=== PATIENT | male | born 1945 | race Caucasian/White ===

== ENCOUNTER 2018-02-16 23:09 | Inpatient (IN) | payer MEDICARE, OTHER ==
[2018-02-16] MEDS ORDERED: Heparin 10,000 UNITS/1 ML VIAL ONE (23:42)
[2018-02-16] MEDS ORDERED: Aggrastat 12.5 MG/250 ML 250 ML ONE (23:42)
[2018-02-16 23:51] LABS: INR-International Normal Ratio 1.2; Prothrombin Time 14.9 SEC (12.0-14.7)
[2018-02-16 23:52] LABS: PTT 66.7 SEC (22.9-36.1)
[2018-02-16] MEDS ORDERED: Atropine Sulfate 1 mg/10 ml Syringe ONE (23:54)
[2018-02-17] MEDS ORDERED: DOPamine 400 MG/D5W 250 ML 250 ML ONE (00:09)
[2018-02-17] MEDS ORDERED: Nitroglycerin 100MG/250ML BOT 250 ML ONE (00:56)
[2018-02-17] MEDS: Sodium Chloride 0.9% 1,000 ML IV SCH ×2 (02:00→13:07)
[2018-02-17 02:01] VITALS: BMI 28.3
[2018-02-17] MEDS ORDERED: Aggrastat 12.5 MG/250 ML 12.5 MG in Premix Bag 1 BAG IVPB SCH (02:49)
[2018-02-17 05:12] LABS: #Lymphocytes 0.9 thou/uL (1.20-3.40); #Monocytes 0.5 thou/uL (0.11-0.59); #Neutrophils 9.3 thou/uL (1.40-6.50); %Basophils 0.3 % (0.0-1.0); %Eosinophils 0.4 % (0.0-10.0); %Lymphocytes 8.2 % (21.0-51.0); %Monocytes 4.9 % (0.0-10.0); %Neutrophils 86.3 % (42.0-75.0); Mean Corpuscular HGB CONC 33.7 g/dL (32.0-36.0); Mean Corpuscular Volume 88.9 fL (78.0-98.0); Mean Platelet Volume 6.9 fL (7.4-10.4); Platelet Count 211 thou/uL (130-400); RBC Distribution Width 12.2 % (11.5-14.5); Red Blood Cell (RBC) Count 4.99 mill/uL (4.70-6.10); White Blood Cell (WBC) Count 10.8 thou/uL (4.8-10.8)
[2018-02-17 05:32] LABS: ALT (SGPT) 27 U/L (8-55); AST (SGOT) 76 U/L (5-34); Albumin 3.6 g/dL (3.4-4.8); Alkaline Phosphatase 59 U/L (40-150); Anion Gap 9 mmol/L (10-20); BUN (Urea Nitrogen) 13 mg/dL (8.4-25.7); Bilirubin, Total 0.5 mg/dL (0.2-1.2); Calc. Creatinine Clearance 111 mL/min (70-130); Calcium 8.7 mg/dL (7.8-10.44); Carbon Dioxide 25 mmol/L (23-31); Chloride 105 mmol/L (98-107); Estimated GFR-MDRD Greater than 90; Globulin 2.6 g/dL (2.4-3.5); Glucose 123 mg/dL (83-110); Protein, Total 6.2 g/dL (5.8-8.1); Sodium 135 mmol/L (136-145)
[2018-02-17 06:04] LABS: CKMB 115.6 ng/mL (0-6.6)
[2018-02-17] MEDS ORDERED: Carvedilol 3.125 MG TAB PO SCH (09:00)
[2018-02-17 10:43] LABS: #Eosinphils 0.1 thou/uL (0.0-0.7); #Lymphocytes 1.4 thou/uL (1.20-3.40); #Monocytes 0.9 thou/uL (0.11-0.59); #Neutrophils 9.5 thou/uL (1.40-6.50); %Basophils 0.2 % (0.0-1.0); %Eosinophils 0.4 % (0.0-10.0); %Lymphocytes 11.8 % (21.0-51.0); %Monocytes 7.3 % (0.0-10.0); %Neutrophils 80.3 % (42.0-75.0); Hemoglobin 14.9 g/dL (14.0-18.0); Mean Corpuscular HGB CONC 34.7 g/dL (32.0-36.0); Mean Corpuscular Hemoglobin 30.6 pg (27.0-31.0); Mean Corpuscular Volume 88.3 fL (78.0-98.0); Mean Platelet Volume 6.5 fL (7.4-10.4); Platelet Count 216 thou/uL (130-400); RBC Distribution Width 12.3 % (11.5-14.5); Red Blood Cell (RBC) Count 4.86 mill/uL (4.70-6.10); White Blood Cell (WBC) Count 11.8 thou/uL (4.8-10.8)
[2018-02-17 11:56] LABS: CKMB 143.7 ng/mL (0-6.6)
[2018-02-17] MEDS: Lisinopril 2.5 MG TAB PO SCH (13:12)
--- NOTE | 2018-02-17 14:58 | HP ---
INDICATION FOR ADMISSION: Acute inferior myocardial infarction. HISTORY OF PRESENT ILLNESS: This is a very pleasant 72-year-old gentleman, who has had no previous cardiac history. He has been complaining of some chest pain on and off for several days and when he was doing exercise, running on the treadmill. This evening, he was sitting on the sofa and started noticing that he has some chest discomfort. The chest pain increased and he became somewhat short of breath. He presented to the emergency room, was found to have an acute inferior myocardial infarction. He will be taken to the cardiac high density press laborer on an emergent basis. In the emergency room in [place], he was given heparin and aspirin. His pain has decreased somewhat now. Prior to going to the high density press laborer, his chest pain was about 3/10. PAST MEDICAL HISTORY: Only positive for hernia repair in February 2016. He does have a history of hypertension. He denied any history of hypercholesterolemia, diabetes, or tobacco abuse. FAMILY HISTORY: He does have some family history of coronary artery disease. SOCIAL HISTORY: He is . He has 2 children. No heart disease. He has no tobacco abuse. ALLERGIES: NONE. REVIEW OF SYSTEMS: A 12-point review of systems is unremarkable except the patient wears glasses and as noted in the history of present illness. PHYSICAL EXAMINATION: GENERAL: Reveals a well-developed, well-nourished, very pleasant gentleman. VITAL SIGNS: Blood pressure was elevated previously at 210/100 in the emergency room. This has no decreased somewhat. Blood pressure is down to 173/97. Heart rate is approximately 68 beats per minute, O2 saturation is 98%. HEENT: Shows the head to be normocephalic and atraumatic. Carotid pulses are present. There were no bruits. CHEST: Clear to auscultation. There were no rales, rhonchi, or wheezing. CARDIOVASCULAR: Reveals a regular rate and rhythm. He has normal S1, S2. I did not hear significant any S3 or S4. There were no significant murmurs, heaves, thrills, bruits or rubs. ABDOMEN: Soft, nontender. Positive bowel sounds are present. EXTREMITIES: Show no clubbing, cyanosis, or edema. Pedal pulses are present. NEUROLOGIC: The patient appears to be fully intact. DIAGNOSTIC DATA: His EKG did show acute ST-segment elevation in the inferior leads compatible with acute inferior myocardial infarction with reciprocal changes in the lateral leads. His laboratory data is still pending. He did have laboratory data performed in [place]. We will review this when the lab arise. Given the patient's history and continued chest pain and EKG changes, he will be taken to the cardiac high density press laborer on an emergent basis. I have explained the procedure, the risks to him to include bleeding, infection, possible myocardial infarction, CVA, renal insufficiency, allergic contrast reaction, the possibility of . He understands and agrees to proceed. We will plan for emergent cardiac catheterization. Job ID: [id number]
[2018-02-17 15:30] LABS: #Lymphocytes 1.3 thou/uL (1.20-3.40); #Monocytes 0.8 thou/uL (0.11-0.59); #Neutrophils 10.5 thou/uL (1.40-6.50); %Basophils 0.2 % (0.0-1.0); %Eosinophils 0.4 % (0.0-10.0); %Lymphocytes 10.4 % (21.0-51.0); %Monocytes 6.5 % (0.0-10.0); %Neutrophils 82.5 % (42.0-75.0); Hemoglobin 14.7 g/dL (14.0-18.0); Mean Corpuscular Hemoglobin 30.3 pg (27.0-31.0); Mean Platelet Volume 6.4 fL (7.4-10.4); Platelet Count 208 thou/uL (130-400); RBC Distribution Width 12.3 % (11.5-14.5); Red Blood Cell (RBC) Count 4.86 mill/uL (4.70-6.10); White Blood Cell (WBC) Count 12.7 thou/uL (4.8-10.8)
--- NOTE | 2018-02-17 16:40 | CON ---
DATE OF CONSULTATION: 02/17/2018 PRIMARY CARE PHYSICIAN: Riki Powell MD CHIEF COMPLAINT: Chest pressure. HISTORY OF PRESENT ILLNESS: The patient is a 72-year-old man with scant past medical history. Yesterday evening, he began developing substernal chest pressure that persisted and became associated with diaphoresis. When he presented to the emergency room, he had inferior ST elevation and he was transferred here and taken emergently to the metallurgy laboratory technician and underwent emergency angioplasty of his right coronary system. During the procedure, he had some bradycardia associated with hypotension that has since resolved. He has had an otherwise uneventful post infarction course. PAST MEDICAL HISTORY: He has no other past medical history. PAST SURGICAL HISTORY: About a year ago, he underwent a left inguinal herniorrhaphy. MEDICATIONS: He takes no medications on a regular basis. ALLERGIES: HAS NO FOOD OR DRUG ALLERGIES. SOCIAL HISTORY: He does not smoke. FAMILY HISTORY: Significant for his father having coronary problems starting in his mid 60s. He also had a stroke. He has had an uncle, who suddenly presumably of a heart attack. REVIEW OF SYSTEMS: Notable for similar, but less severe chest pressure when he had about the 2 mile hali on the treadmill about 2 months ago. He has had no other similar chest symptoms. No transient eye, speech, facial, or extremity symptoms to suggest TIAs. No recent illnesses. No unintended weight loss. PHYSICAL EXAMINATION: GENERAL: On exam, he is a fit-appearing man, who probably looks a little bit younger than his stated age. VITAL SIGNS: Height is 5 feet 8 inches. Weight is 186 and quarter pounds. Heart rate is 64, blood pressure 136/63, and room air O2 saturations are 97%. HEENT: He has no xanthelasma. NECK: No JVD. No carotid bruits. CHEST: Clear to auscultation. HEART: He has regular rate and rhythm. ABDOMEN: Soft and nontender. EXTREMITIES: He has easily palpable radial, dorsalis pedis and posterior tibial pulses. No clubbing, cyanosis, or edema. No obvious varicosities. NEUROLOGIC: Grossly nonfocal. LABORATORY EXAM: Showed a white count of 11.8, hemoglobin 14.9, hematocrit 42.9, and platelets 216,000. PT was 14.9 and INR 1.2. Electrolytes were normal. Glucose 123, BUN 13, creatinine 0.73, bilirubin 0.5, alkaline phosphatase 59, AST 76, ALT 27, calcium 8.7, protein 6.2, and albumin 3.6. His initial troponin here shortly before midnight was 0.408, around 4:45 in the morning, 26.037 and 10:30 this morning 110.989. His chest x-ray showed some mild pulmonary edema. His cardiac catheterization showed a right-dominant system with serial subtotal stenosis in the proximal and mid right coronary with a high-grade lesion on the order of about 80% or perhaps 90% distally with a vessel that was probably about 2 to 2.5 mm in size. There was a protracted course in attempting to open it and ultimately had to settle for angioplasty without stenting. His left-sided system has multiple branches, all of which are at best modest in size. His LAD seems to get very small out distally where it is readily accessible surgically. He has modest lesion in a small diagonal and a high-grade lesion in what appears to represent a very proximal diagonal. He has significant lesions in a moderate-sized OM1, small OM2 with no significant compromise to the circumflex system beyond that. Post percutaneous revascularization of his right coronary artery, LVEF was around 60% with no obvious wall motion abnormalities. Aortic pressure is 135/53 with mean of 85 on pullback from the LV pressure of 142, negative to with an EDP of 6. IMPRESSION AND PLAN: Severe 2-vessel coronary artery disease primarily involving an extensively diseased, right coronary system is culprit vessel for an inferior myocardial infarction, seems to have been successfully aborted with good LV function post dilatation from a technical standpoint it was not feasible to stent the vessel and as Dr. Zacarias and I discussed as we went over his catheterization. Neither of us are very optimistic about it staying open for a very long time given the intervention so far I am not quite as pessimistic, he is about being technically able to graft both of the compromised EOMs, but it certainly are not large vessels. We went over the film for considerable amount of time trying to make certain about the severity of the disease in the LAD, although the vessel is rather small distally. There does not seem to be any discrete flow-limiting lesion. The vessels under fluoroscopy can be appreciated to be extensively calcified proximally on the left side and for much of the right coronary artery. Impression/recommendations, while technically feasible to bypass the right and at least 1 of the obtuse marginals, this seems awfully invasive given the lack of compromise of the LAD. Irrespective of the technical challenges of the size of the vessels, there certainly is not a survival advantage with surgical revascularization. One of the options that we discussed the Rotablator approach followed by stenting, which would require outside referral. I think that this is a reasonable consideration rather than coronary artery bypass grafting. Job ID: [id number]
--- NOTE | 2018-02-17 20:23 | PDOC.CTH ---
Cardiology Progress Note - Subjective Pt. seen and eval. no complaints. No chest pain or SOB. 9 beats of AIVR this AM. - Objective Vital Signs Temp Pulse BP 02/17/18 20:00 97.9 F 02/17/18 16:00 98.9 F 02/17/18 13:12 69 130/78 02/17/18 12:00 98.5 F Weight 186 lb 4.65 oz 02/16/18 02/17/18 02/18/18 06:59 06:59 06:59 Intake Total 559 1652 Output Total 350 1700 Balance 209 -48 - Physical Examination General/Neuro: alert & oriented x3 Neck: carotid US brisk Lungs: CTA Heart: RRR Abdomen: NT/ND - Telemetry Telemetry Rhythm: NSR - Labs Result Diagrams: 02/17/18 15:22 02/17/18 04:40 Troponin/CKMB CK-MB (CK-2) 143.7 ng/mL (0-6.6) H* 02/17/18 10:30 Troponin I 110.989 ng/mL (< 0.028) H* 02/17/18 10:30 - Assessment/Plan 1. S/P STEMI-inferior. PTCA with 2.0 and 2.5 mm balloon. Still has residual stenosis. May need rotablader after the stenosis is stable s/p ptca. Vessels are small for CABG. 2. Hypercholesterolemia. Continue statins.
[2018-02-17] MEDS: Carvedilol 3.125 MG TAB PO SCH (21:03)
[2018-02-17] MEDS: Atorvastatin Calcium 40 MG TAB PO SCH (21:03)
[2018-02-17] MEDS: TICAGRELOR 90 MG TABLET PO SCH (21:04)
[2018-02-17 21:29] LABS: #Eosinphils 0.1 thou/uL (0.0-0.7); #Lymphocytes 1.5 thou/uL (1.20-3.40); #Monocytes 0.9 thou/uL (0.11-0.59); #Neutrophils 7.8 thou/uL (1.40-6.50); %Basophils 0.4 % (0.0-1.0); %Eosinophils 0.6 % (0.0-10.0); %Lymphocytes 14.1 % (21.0-51.0); %Monocytes 8.9 % (0.0-10.0); Hemoglobin 14.9 g/dL (14.0-18.0); Mean Corpuscular HGB CONC 34.7 g/dL (32.0-36.0); Mean Corpuscular Volume 89.4 fL (78.0-98.0); Mean Platelet Volume 6.5 fL (7.4-10.4); Platelet Count 195 thou/uL (130-400); RBC Distribution Width 12.4 % (11.5-14.5); Red Blood Cell (RBC) Count 4.81 mill/uL (4.70-6.10); White Blood Cell (WBC) Count 10.3 thou/uL (4.8-10.8)
[2018-02-18] MEDS: Carvedilol 3.125 MG TAB PO SCH ×2 (08:14→20:07)
[2018-02-18] MEDS: TICAGRELOR 90 MG TABLET PO SCH ×2 (09:51→20:07)
[2018-02-18] MEDS: Lisinopril 2.5 MG TAB PO SCH (09:51)
--- NOTE | 2018-02-18 16:49 | PDOC.CTH ---
Cardiology Progress Note - Subjective No overnight events. No cardiac complaints. - Objective Vital Signs Temp Pulse BP Pulse Ox 02/18/18 12:00 98.7 F 02/18/18 09:51 64 127/76 02/18/18 07:53 100 02/18/18 07:00 98.4 F Weight 184 lb 4.903 oz 02/17/18 02/18/18 02/19/18 06:59 06:59 06:59 Intake Total 559 1896 790 Output Total 350 2650 650 Balance 209 -754 140 - Physical Examination General/Neuro: alert & oriented x3 Neck: carotid US brisk, no JVD present Lungs: CTA Heart: RRR Abdomen: NT/ND, soft - Labs Result Diagrams: 02/17/18 21:21 02/17/18 04:40 Troponin/CKMB CK-MB (CK-2) 143.7 ng/mL (0-6.6) H* 02/17/18 10:30 Troponin I 110.989 ng/mL (< 0.028) H* 02/17/18 10:30 - Assessment/Plan 1. S/P STEMI-inferior. PTCA with 2.0 and 2.5 mm balloon. Still has residual stenosis. May need rotablader after the stenosis is stable s/p ptca. Vessels are small for CABG. will recheck the troponin-I. Stable to transfer to [facility]. Will discuss with in [place] concerning further revascularization. 2. Hypercholesterolemia. Continue statins.
[2018-02-18 17:51] LABS: Troponin I 203.395 ng/mL (< 0.028)
[2018-02-18] MEDS: Atorvastatin Calcium 40 MG TAB PO SCH (20:07)
[2018-02-19] MEDS: TICAGRELOR 90 MG TABLET PO SCH ×2 (09:12→20:40)
[2018-02-19] MEDS: Carvedilol 3.125 MG TAB PO SCH ×2 (09:13→20:40)
[2018-02-19] MEDS: Lisinopril 2.5 MG TAB PO SCH (09:19)
--- NOTE | 2018-02-19 18:52 | PDOC.CTH ---
Cardiology Progress Note - Subjective Pt. seen and eval. no overnight events. No chest pain or SOB - Objective Vital Signs Temp Pulse Pulse Pulse Resp BP BP 02/19/18 16:34 98.8 F 71 18 02/19/18 11:07 98.5 F 74 18 02/19/18 09:30 72 72 162/90 H 181/95 H 02/19/18 08:00 98.6 F 70 20 BP Pulse Ox Pulse Ox Pulse Ox 02/19/18 16:34 131/85 97 02/19/18 11:07 156/92 H 98 02/19/18 09:30 96 97 02/19/18 08:00 116/76 96 Weight 183 lb 5 oz 02/18/18 02/19/18 02/20/18 06:59 06:59 06:59 Intake Total 1896 1040 Output Total 2650 1000 Balance -754 40 - Physical Examination General/Neuro: alert & oriented x3 Neck: carotid US brisk, no JVD present Lungs: CTA, unlabored respirations Heart: RRR Abdomen: no HSM, NT/ND - Labs Result Diagrams: 02/17/18 21:21 02/17/18 04:40 Troponin/CKMB CK-MB (CK-2) 143.7 ng/mL (0-6.6) H* 02/17/18 10:30 Troponin I 203.395 ng/mL (< 0.028) H* 02/18/18 16:55 - Assessment/Plan 1. S/P STEMI-inferior. PTCA with 2.0 and 2.5 mm balloon. Still has residual stenosis. May need rotablader after the stenosis is stable s/p ptca. Vessels are small for CABG. will recheck the troponin-I. Stable to transfer to [facility]. Will discuss with in [place] concerning further revascularization.Still waiting to hear back from [place]. he is doing well without symptoms. Plan for D/C in AM 2. Hypercholesterolemia. Continue statins.
[2018-02-19] MEDS: Atorvastatin Calcium 40 MG TAB PO SCH (20:40)
--- NOTE | 2018-02-20 08:44 | PDOC.CTH ---
Cardiology Progress Note - Subjective Pt. seen and eval. no overnight events. No chest pain or SOB. - Objective Vital Signs Temp Pulse Resp BP Pulse Ox 02/20/18 04:00 98.4 F 71 18 120/65 98 02/20/18 00:00 98.4 F 67 19 138/78 96 Weight 182 lb 8 oz 02/19/18 02/20/18 02/21/18 06:59 06:59 06:59 Intake Total 1040 2890 Output Total 1000 850 Balance 40 2040 - Physical Examination General/Neuro: alert & oriented x3 Neck: no JVD present Lungs: CTA Heart: RRR Abdomen: soft Extremities: other: (No edema) - Telemetry Telemetry Rhythm: SR - Labs Result Diagrams: 02/17/18 21:21 02/17/18 04:40 Troponin/CKMB CK-MB (CK-2) 143.7 ng/mL (0-6.6) H* 02/17/18 10:30 Troponin I 203.395 ng/mL (< 0.028) H* 02/18/18 16:55 - Assessment/Plan 1. S/P STEMI-inferior. PTCA with 2.0 and 2.5 mm balloon to prx-mid RCA (No stent) and 50% stenosis in Dig1, 20% in mid LAD, 70% in OM1, and 20% in Prox Cx. Still has residual stenosis. May need rotablader after the stenosis is stable s/p ptca. 2. HTN - stable with current med 3. Hyperlipidemia - on Statin * The pt is stable to d/c home this AM. The pt will f/u with Dr Zacarias' office within 1-2wks. * Vessels are small for CABG. The pt will f/u with CT surgeon in [place] concerning further revascularization. Still waiting to hear back from [place]. Review of Systems - Review of Systems Constitutional: reports: no symptoms reported EENTM: reports: no symptoms reported Respiratory: reports: no symptoms reported Cardiac (ROS): reports: no symptoms reported ABD/GI: reports: no symptoms reported : reports: no symptoms reported Musculoskeletal: reports: no symptoms reported
[2018-02-20] MEDS: Carvedilol 3.125 MG TAB PO SCH (09:02)
[2018-02-20] MEDS: TICAGRELOR 90 MG TABLET PO SCH (09:03)
[2018-02-20] MEDS: Lisinopril 2.5 MG TAB PO SCH (09:03)
[2018-02-20 09:24] VITALS: BP 164/90; TEMP 97.2
[2018-02-20 11:24] LABS: Critical Call Chem Troponin I RESULT DECREASING; Troponin I 165.743 ng/mL (< 0.028)
--- NOTE | 2018-02-20 16:15 | EKG ---
Test Reason : Blood Pressure : / mmHG Vent. Rate : 059 BPM Atrial Rate : 059 BPM P-R Int : 164 ms QRS Dur : 124 ms QT Int : 436 ms P-R-T Axes : 017 -41 -45 degrees QTc Int : 431 ms Sinus bradycardia with sinus arrhythmia Left axis deviation Right bundle branch block Moderate voltage criteria for LVH, may be normal variant Inferior infarct (cited on or before 16-FEB-2018) Abnormal ECG When compared with ECG of 16-FEB-2018 23:14, (Unconfirmed) Right bundle branch block has replaced RSR' pattern in V1 Serial changes of evolving Inferior infarct Present Confirmed by DR. Ita DE LA O ([id number]) on 02/20/2018 4:15:23 PM Referred By: KEE Confirmed By:DR. Ita DE LA O
--- NOTE | 2018-02-21 03:04 | DIS ---
DATE OF ADMISSION: 02/17/2018 DATE OF DISCHARGE: 02/20/2018 ADMITTING DIAGNOSES: Acute inferior ST-segment elevation myocardial infarction. His other diagnosis includes hypertension. DISCHARGE DIAGNOSIS: hypertension. PROCEDURE DURING HOSPITALIZATION: Include cardiac catheterization with angioplasty to the right coronary artery. No stent was placed. He also had other disease noted in the diagonal branch, as well as left circumflex. In the obtuse marginal branches, the left ventricular systolic function appeared to be well preserved. DISCHARGE MEDICATIONS: Include: 1. Brilinta 90 mg b.i.d. 2. Zestril 2.5 mg daily. 3. Coreg 1.5625 mg b.i.d. 4. Atorvastatin 80 mg at bedtime. I will see him back in the office in the next 1 to 2 weeks. We will send his records and CD of the cardiac catheterization to Dr. Hsu in [place] for possible delayed rotablator to the right coronary artery due to heavy calcifications or possible bypass surgery to the distal right and obtuse marginal branches in left circumflex. HOSPITAL COURSE: This is a very unfortunate gentleman, 72-year-old, who presented with an acute ST-segment elevation myocardial infarction. He underwent angioplasty to the right coronary artery with totally occluded vessel with heavy calcification and tortuosity in very small coronary arteries. The right coronary artery is 2.0 to 2.5 mm in diameter, distally appeared to be more of a 2.5 mm vessel. His other coronary arteries also appeared to be about 2.5 mm in diameter. He was found to have at least good flow down the right coronary artery at the end of procedure. He has had no further chest discomfort. EKG did improve. We will review the final EKG prior to discharge. His cardiac enzymes elevated significantly and his troponin I on admission was 0.4, increased up to . He has had no further symptoms, however, has been ambulating without difficulties. I will plan for discharge today and will see him back in the office as noted. He will need further intervention in the future to the right coronary artery. It is possible the vessel has completely occluded or re-occluded and the patient is asymptomatic, but he has had no further pain since the vessel was opened on early Monday morning. He was on no medications prior to being in the hospital. We will also check a cholesterol level to determine whether or not he has significant elevation of cholesterol. However, he has been on Lipitor since being admitted about 80 mg a day. He will continue this medication, as well as the ARJUN inhibitors and beta blockers, Brilinta and baby aspirin. Job ID: [id number]
== END 2018-02-20 11:34 | disposition home or self-care (01) | DRG 251 ==
LOC: ERS 23:09 → SDC 23:17 → CCU 02-17 00:30 → IMCU/EMU 02-18 23:28
PROVIDERS: ADMIT Internal Medicine Cardiovascular Disease; ATTEND Internal Medicine Cardiovascular Disease
PROC: 02703ZZ Dilation of Coronary Artery, One Artery, Percutaneous Approach (ICD-10-PCS; principal; 2018-02-17)
PROC: 4A023N7 Measurement of Cardiac Sampling and Pressure, Left Heart, Percutaneous Approach (ICD-10-PCS; 2018-02-17)
PROC: B2111ZZ Fluoroscopy of Multiple Coronary Arteries using Low Osmolar Contrast (ICD-10-PCS; 2018-02-17)
PROC: B2151ZZ Fluoroscopy of Left Heart using Low Osmolar Contrast (ICD-10-PCS; 2018-02-17)
DX: I21.19 ST elevation (STEMI) myocardial infarction involving other coronary artery of inferior wall (principal); I10 Essential (primary) hypertension; Z79.899 Other long term (current) drug therapy; E78.5 Hyperlipidemia, unspecified
CPT/HCPCS: 36415; 37212; 80053; 82465; 82553; 84484; 85025; 85347; 86850; 86900; 86901; 92920; 93005; 93010; 93458; 93798; 96374; C1725; C1769; C1887; J0461; J1265; J1644; J3246